=== PATIENT | male | born 1980 ===

== ENCOUNTER 2017-07-07 17:15 | Emergency (ER) | payer SELFPAY ==
[2017-07-07 17:23] VITALS: BP 143/87; PULSE 87; RESP 18; TEMP 97.7; O2SAT 98
--- NOTE | 2017-07-07 19:10 | ED PDOC ---
HPI: General Adult Time Seen by Provider: 07/07/17 17:28 Chief Complaint (Nursing): Medical Clearance Chief Complaint (Provider): Crisis and med screance for incarceration History Per: Patient Additional Complaint(s): 36 yo male, no PMH, presents to ED in order to undergo psychiatric and medical clearance prior for incarceration. Pt c/o chest pain x1 hour, ever since being arrested. Past Medical History Reviewed: Nursing Documentation, Vital Signs Vital Signs: Last Vital Signs Temp 97.7 F 07/07/17 17:21 Pulse 87 07/07/17 17:21 Resp 18 07/07/17 17:21 BP 143/87 07/07/17 17:21 Pulse Ox 98 07/07/17 19:10 - Medical History PMH: No Chronic Diseases - Surgical History Surgical History: No Surg Hx - Family History Family History: States: No Known Family Hx - Living Arrangements Living Arrangements: With Family - Social History Current smoker - smoking cessation education provided: No Alcohol: Social Drugs: Denies - Home Medications Home Medications: Ambulatory Orders Medication Instructions Recorded Ibuprofen [Motrin] 600 mg PO Q6H PRN 02/14/17 - Allergies Allergies/Adverse Reactions: Allergies Allergy/AdvReac Type Severity Reaction Status Date / Time No Known Allergies Allergy Unverified 02/14/17 01:38 Review of Systems ROS Statement: Except As Marked, All Systems Reviewed And Found Negative Cardiovascular: Positive for: Chest Pain Physical Exam - Reviewed Nursing Documentation Reviewed: Yes Vital Signs Reviewed: Yes - Physical Exam Appears: Positive for: Well, Non-toxic, No Acute Distress Head Exam: Positive for: ATRAUMATIC, NORMAL INSPECTION, NORMOCEPHALIC Skin: Positive for: Normal Color, Warm, DRY Eye Exam: Positive for: EOMI, Normal appearance, PERRL ENT: Positive for: Normal ENT Inspection Neck: Positive for: Normal, Painless ROM Cardiovascular/Chest: Positive for: Regular Rate, Rhythm Respiratory: Positive for: CNT, Normal Breath Sounds Gastrointestinal/Abdominal: Positive for: Normal Exam, Bowel Sounds, Soft Back: Positive for: Normal Inspection Extremity: Positive for: Normal ROM Neurologic/Psych: Positive for: Alert, Oriented - ECG O2 Sat by Pulse Oximetry: 98 Medical Decision Making Medical Decision Making: EKG: NSR at 73 bpm, no axis devation, no acute ST changes, as read by MATILDE CXR pending Case endorsed to MATILDE Cash at 20:00 pending crisis eval and CXR for incarceration Disposition - Clinical Impression Clinical Impression: Chest pain, Adjustment disorder - Patient ED Disposition Is Patient to be Admitted: Transfer of Care - Disposition Disposition: Transfer of Care Disposition Time: 19:58 Condition: STABLE Forms: [facility] (Amharic)
--- NOTE | 2017-07-07 20:22 | ED PDOC ---
- ECG Interpretation Of ECG: NSR 73 bpm, no acute finding, reviewed by PA and ED attending O2 Sat by Pulse Oximetry: 98 Pulse Ox Interpretation: Normal - Other Rad CXR X-Ray: Interpreted by Me, Viewed By Me X-Ray Interpretation: no acute finding Medical Decision Making Medical Decision Making: Case was signed out to play writer from JAYME Dunlap pending crisis eval. Patient was seen by crisis counselor. Patient is psychiatrically stable for incarceration. Disposition - Clinical Impression Clinical Impression: Chest pain, Adjustment disorder, Medical clearance for incarceration - POA Present On Arrival: None - Disposition Referrals: [facility] [Outside] Disposition: Discharged/Transfer to Law Enforcement Disposition Time: 21:42 Condition: STABLE Additional Instructions: Patient is medically and psychiatrically stable for incarceration. Instructions: Chest Pain (ED), Mood Disorders (ED) Forms: [facility] (Beninese)
--- NOTE | 2017-07-07 22:45 | RAD ---
PROCEDURE: CHEST RADIOGRAPH, 1 VIEW HISTORY: med screening COMPARISON: None available. FINDINGS: LUNGS: Clear. PLEURA: No pneumothorax or pleural fluid seen. CARDIOVASCULAR: Normal. OSSEOUS STRUCTURES: No significant abnormalities. VISUALIZED UPPER ABDOMEN: Normal. OTHER FINDINGS: None. IMPRESSION: No active disease.
--- NOTE | 2017-07-08 09:25 | CARD ---
APPROVED REPORT EKG Measurement Heart [id number] <Conclusion> Normal sinus rhythm Normal ECG
== END 2017-07-07 22:14 ==
LOC: H.ER 17:15
DX: R07.89 Other chest pain (principal); F43.20 Adjustment disorder, unspecified; Z02.89 Encounter for other administrative examinations